=== PATIENT | male | born 1955 | race Caucasian/White ===

== ENCOUNTER → 2016-10-22 | Outpatient (CLI) | payer MEDICAID ==
--- NOTE | 2016-10-22 15:43 | RADIOLOGY REPORT (SQ) ---
EXAM DESCRIPTION: MRI THORACIC SPINE WITHOUT COMPLETED DATE/TIME: 10/22/2016 2:40 pm REASON FOR STUDY: PAIN IN THORACIC SPINE M54.6 PAIN IN THORACIC SPINE COMPARISON: MRI from [facility] dated 03/02/2015. TECHNIQUE: Sagittal and Axial imaging includes T1, T2, STIR and gradient echo sequences. LIMITATIONS: None. FINDINGS: LOCALIZER: No worrisome findings. ALIGNMENT: Normal. VERTEBRAE: Intact. BONE MARROW: Again seen is heterogenous marrow signal in the T12 vertebral body extending into the le ft and right pedicles. Also again seen is similar heterogenous signal in the inferior T10 vertebral body and in the T6 vertebral body. There is now a similar finding in the left side of the T12 verteb ral body. Scattered areas of increased signal on T1, T2, and STIR imaging. HARDWARE: None in the spine. CORD: Normal in size and signal intensity. SOFT TISSUES: No soft tissue masses. THORACIC DISCS T1-T12: Minimal disc disease. No significant disc herniation and no spinal stenosis o r exit foraminal stenosis. LOWER CERVICAL: Incompletely imaged. No significant spinal stenosis or exit foraminal stenosis. UPPER LUMBAR: Incompletely imaged. Heterogenous marrow signal in the L2 and L3 vertebral bodies. No significant spinal stenosis or exit foraminal stenosis. OTHER: No other significant finding. IMPRESSION: STABLE AREAS OF HETEROGENOUS MARROW SIGNAL PRIMARILY IN THE T6, T 10, AND T11 VERTEBRAE. SIMILAR INVOLVEMENT NOW PRESENT IN THE T12 VERTEBRA. NO EVIDENCE OF PATHOLOGIC COMPRESSION FRACTUR E. FINDINGS ARE MOST LIKELY DUE TO BENIGN ETIOLOGY WITH PAGET'S DISEASE IN THE DIFFERENTIAL. METAST ATIC BONY INVOLVEMENT IS LESS LIKELY. NO ACUTE FINDINGS. TECHNICAL DOCUMENTATION: JOB ID: [id number] All Rights Reserved
== END ==
LOC: RAD 13:02
PROVIDERS: ATTEND Nurse Practitioner
DX: M54.6 Pain in thoracic spine (principal)
CPT/HCPCS: 72146